=== PATIENT | female | born 1975 | race Caucasian/White ===

== ENCOUNTER 2017-01-11 17:22 | Emergency (ER) | payer OTHER ==
[~2017-01-11] VITALS: Wt 63.7 kg
[~2017-01-11 17:22] MED LIST: IBUP-1542 PO; LEVO100T87 PO; ONDA8TAB14 PO; TYL2 PO
[2017-01-11 19:22] LABS: URINE BLOOD (Dip) POC Trace-lysed (NEGATIVE)
[2017-01-11] MEDS ORDERED: ACET1TAB40 PO (20:12)
--- NOTE | 2017-01-11 20:33 | RADRPT ---
PROCEDURE: CT Abdomen and Pelvis without contrast CLINICAL INDICATION: Left-sided pain, hematuria TECHNIQUE: Transaxial images were obtained through the abdomen and pelvis on a multi-slice scanner without the intravenous contrast administration. No oral contrast had previously been given. Sagit halina and coronal re-formations were subsequently reconstructed. One or more of the following dose reduction techniques were used: - Automated exposure control. - Adjustment of the mA and/or kV according to patient size. - Use of iterative reconstruction technique. Radiation dose: CTDIvol = 8.58 mGy; DLP = 423.74 mGy-cm. COMPARISON: No prior studies are available for comparison. FINDINGS: Lung bases: The visualized lung bases appear unremarkable. Liver: Normal in size and in attenuation. There is no focal lesion. Gallbladder: The wall is not thickened. No radiopaque stones are identified. Bile ducts: The intra and extrahepatic bile ducts are normal in caliber. Pancreas: Appears normal with no mass or inflammation evident. Spleen: Normal in size with no focal lesion. Adrenals: Normal with no mass identified. Kidneys, ureters and bladder: The kidneys are normal in size and there is no mass or hydronephrosis evident. A 3 mm nonobstructing nephrolith is seen in the mid pole of the left kidney. There is no pe rinephric stranding. The ureters are normal in caliber and no ureteroliths are identified. The bladd er appears unremarkable. Reproductive organs: The uterus is midline. No adnexal mass is evident. Stomach and bowel: Substantial stool seen in the right colon. There is no evidence of bowel obstruc tion or inflammation. Appendix: The vermiform appendix is not discretely identified. Peritoneum: No free intraperitoneal fluid or air is identified. Aorta: Normal in caliber with no aneurysmal dilatation. IVC: Unremarkable. Lymph nodes: No pathologically enlarged nodes are identified. Osseous structures: The osseous elements appear intact. IMPRESSION: 1. 3 mm nonobstructing nephrolith seen in the mid pole of the left kidney without evidence of urina ry outflow obstruction or ureterolithiasis. 2. Substantial stool particularly in the right colon without evidence of bowel obstruction or infla mmation. The vermiform appendix is not discretely identified. 3. Otherwise, unremarkable noncontrast enhance CT scan of the abdomen and pelvis. Jacob Inman Physician Date Time Electronically viewed and signed by Jacob Inman Physician on 01/11/2017 20:33 RH/
--- NOTE | 2017-01-11 20:38 | ERD ---
ER Documentation Chief Complaint Date/Time DATE: 01/11/17 TIME: 20:37 Chief Complaint intermittent lower abd pain and dyauria but no hematuria HPI This 41-year-old female presents with left lower abdominal pain for the last 3 days. She also has possibly some mild dysuria and frequent urination although she drinks a lot of water. She denies any fevers, vomiting. She denies any flank pain. ROS All systems reviewed and are negative except as per history of present illness. Medications Home Meds Active Scripts Acetaminophen with Codeine (Acetaminophen-Cod #3 Tablet) 1 Each Tablet, 1 TAB PO Q6H Y for PAIN, #12 TAB Prov:SATNAM HERNÁNDEZ MD 01/11/17 Ondansetron (Ondansetron Odt) 8 Mg Tab.rapdis, 8 MG PO Q6H Y for NAUSEA AND/OR VOMITING, #8 TAB Prov:SATNAM HERNÁNDEZ MD 06/08/16 Acetaminophen-Codeine* (Acetaminophen-Cod #2*) 300-15 Mg Tab, 1 TAB PO Q4H Y for PAIN, #12 TAB Prov:SATNAM HERNÁNDEZ MD 06/08/16 Ibuprofen* (Motrin*) 600 Mg Tab, 600 MG PO Q6, #30 TAB Prov:SATNAM HERNÁNDEZ MD 06/08/16 Reported Medications Levothyroxine Sodium* (Levothyroxine Sodium*) 100 Mcg Tablet, 100 MCG PO DAILY, TAB 11/18/14 Allergies Allergies: Coded Allergies: tramadol (Verified Allergy, Unknown, 06/08/16) PMhx/Soc History of Surgery: Yes (APPENDICITIS 1987/ADNOIDS REMOVAL/MISCARRIAGE) Anesthesia Reaction: No Hx Neurological Disorder: No Hx Respiratory Disorders: No Hx Cardiac Disorders: No Hx Psychiatric Problems: No Hx Miscellaneous Medical Probl: Yes (HYPOTHRYOIDISM, OVARIAN CYST) Hx Alcohol Use: Yes (OCASSIONAL WINE) Hx Substance Use: No Hx Tobacco Use: No Physical Exam Vitals Vital Signs Date Time Temp Pulse Resp B/P Pulse Ox O2 Delivery O2 Flow Rate FiO2 01/11/17 17:33 98.5 86 21 150/91 100 Physical Exam Const: [] Alert, [id number] per Head: Atraumatic Eyes: Normal Conjunctiva ENT: Normal External Ears, Nose and Mouth. Neck: Full range of motion..~ No meningismus. Resp: Clear to auscultation bilaterally Cardio: Regular rate and rhythm, no murmurs Abd: Soft, minimal left mid quadrant tenderness without Romero sign and no tenderness at McBurney's point. No rebound., non distended. Normal bowel sounds Skin: No petechiae or rashes Back: No midline or flank tenderness Ext: No cyanosis, or edema Neur: Awake and alert Psych: Normal Mood and Affect Results 24 hrs Laboratory Tests Test 01/11/17 19:22 Bedside Urine pH (LAB) 6.5 Bedside Urine Protein (LAB) Negative Bedside Urine Glucose (UA) Negative Bedside Urine Ketones (LAB) Negative Bedside Urine Blood Trace-lysed Bedside Urine Nitrite (LAB) Negative Bedside Urine Leukocyte Esterase (L Negative Procedures/MDM Urine shows 1+ hemoglobin without leukocytes, nitrites or glucose. HCG is negative. CT abdomen pelvis given the uncertain cause of pain was performed which shows undescended left renal stone without evidence of diverticulitis, or additional acute findings. Patient has left lower abdominal pain of uncertain etiology, possibly due to nephrolithiasis no evidence of diverticulitis, acute abdomen, additional emergent causes of patient's symptoms. She will treated with Tylenol 3 and further observation at home. She is advised to drink clear fluids return for fevers, vomiting, worsening pain, new worsening symptoms with primary doctor this week. Departure Diagnosis: Primary Impression: Abdominal pain Abdominal location: left upper quadrant Qualified Code: R10.12 - Left upper quadrant pain Additional Impression: Dysuria Condition: Stable Patient Instructions: Abdominal Pain, Dysuria Additional Instructions: Urine shows no signs of infection. CT scan shows a kidney stone in the kidney on the left but likely not cause of pain. Recommend drink clear fluids and further observation. Recheck for new or worsening symptoms with primary care doctor. SATNAM HERNÁNDEZ MD Jan 11, 2017 20:38
== END 2017-01-11 20:53 | disposition home or self-care (01) ==
LOC: FTE 17:22
DX: R10.12 Left upper quadrant pain (principal); E03.9 Hypothyroidism, unspecified
CPT/HCPCS: 74176; 81003